=== PATIENT | male | born 1990 | race African-American/Black ===

== ENCOUNTER 2016-11-03 21:12 | Emergency (ER) | payer MEDICAID ==
[~2016-11-03] VITALS: Ht 170.2 cm; Wt 75.0 kg
[2016-11-04] MEDS ORDERED: KETOROLAC 60MG/2ML VIAL IM ONE (00:30)
[2016-11-04] MEDS ORDERED: LIDOCAINE HCL/EPINEPHRINE 1%-EPI 1:100,000 30 ML VIAL INFIL ONE (00:30)
[2016-11-04] MEDS ORDERED: LIDOCAINE HCL 1% 20ML VIAL (Pyxis) INJ INFIL ONE (01:00)
[2016-11-04 03:56] VITALS: BP 110/76
== END 2016-11-04 03:57 | disposition home or self-care (01) ==
LOC: ER 21:13
DX: L03.317 Cellulitis of buttock (principal); L02.31 Cutaneous abscess of buttock; F41.9 Anxiety disorder, unspecified; F17.210 Nicotine dependence, cigarettes, uncomplicated; F12.10 Cannabis abuse, uncomplicated; F14.10 Cocaine abuse, uncomplicated
CPT/HCPCS: 10060; 96372; 99283; J1885; J3490; X7700; Z7610

== ENCOUNTER 2016-11-07 21:48 | Emergency (ER) | payer MEDICAID ==
[~2016-11-07] VITALS: Ht 172.7 cm; Wt 75.0 kg
[2016-11-07 23:03] VITALS: BP 134/47
== END 2016-11-08 00:40 | disposition home or self-care (01) ==
LOC: ER 21:48
DX: L02.31 Cutaneous abscess of buttock (principal); F17.200 Nicotine dependence, unspecified, uncomplicated
CPT/HCPCS: 99283

== ENCOUNTER 2017-08-26 11:44 | Emergency (ER) | payer MEDICAID ==
[~2017-08-26] VITALS: Ht 167.6 cm; Wt 73.0 kg
[2017-08-26] MEDS ORDERED: ONDANSETRON HCL 4MG/2ML VIAL IV STA (14:14)
[2017-08-26] MEDS ORDERED: SODIUM CHLORIDE 0.9% 1,000 ML IV ONE (14:14)
[2017-08-26 14:38] LABS: HEMATOCRIT. 40.4 % (42.0-52.0); MEAN CORPUSCULAR HEMOGLOBIN 27.7 pg (28.0-32.0); MEAN PLATELET VOLUME 7.6 fl (7.4-10.4); PLATELET 252 x1000/uL (130-400); RED CELL DISTRIBUTION WIDTH 14.3 % (11.6-14.6)
[2017-08-26 14:44] LABS: CHLORIDE 105 mEq/L (98-107)
[2017-08-26 14:49] LABS: INR 1.1
[2017-08-26 15:22] LABS: PLATELET ESTIMATE NORMAL
[2017-08-26 17:10] LABS: CLARITY URINE CLEAR (CLEAR); COLOR URINE YELLOW (YELLOW); KETONES URINE 1+ (NEGATIVE); LEUKOCYTE ESTERASE URINE NEGATIVE (NEGATIVE); NITRITE URINE NEGATIVE (NEGATIVE); OCCULT BLOOD URINE NEGATIVE (NEGATIVE); PH URINE >=9.0 (4.5-8.0); PROTEIN URINE NEGATIVE (NEGATIVE); SPECIFIC GRAVITY URINE 1.018 (1.005-1.030); UROBILINOGEN URINE 0.2 E.U./dL (0.2-1.0)
[2017-08-26 17:40] VITALS: BP 112/63
== END 2017-08-26 17:40 | disposition home or self-care (01) ==
LOC: ER 12:44
DX: A08.4 Viral intestinal infection, unspecified (principal); F17.200 Nicotine dependence, unspecified, uncomplicated; R79.1 Abnormal coagulation profile
CPT/HCPCS: 36415; 80053; 81003; 83690; 85025; 85610; 96361; 96374; 99284; J2405; J7030